=== PATIENT | male | born 1930 | race Caucasian/White ===

== ENCOUNTER → 2017-09-08 | Outpatient (CLI) | payer MEDICARE, OTHER ==
[~2017-09-08] MED LIST: AMIO100T4 PO; AMIO200T51 PO; ASPI-1419 PO; ATENOLOL; AZIT-9 PO; BIMA5DRO OU; CALC625T57 PO; CAR6.25 PO; CLO75 PO; Coumadin; FINA5TAB67 PO; FURO20TA19 PO; GLIM1TAB25 PO; ISOS60TA PO; LEVO-85 PO; LIS10 PO; METH4TAB66 PO; MIRA25TA PO; MULT-820 PO; NITR4.1S2 TL; OXYB10TA16 PO; OXYB5TAB86 PO; OXYGEN INH; SIM10 PO; SIMV-49 PO; SOLI5TAB PO; TAMS0.4C25 PO; TAMS0.4C70 PO; TER2 PO; VIT-7 PO; WAR25 PO; WAR5 PO; WARF-1 PO; WARF2.5T62 PO; WARF5TAB23 PO; [UNRECOGNIZED DRUG - CODE] PO; [UNRECOGNIZED DRUG - OTHER]
[2017-09-08 08:53] LABS: PLATELET COUNT, AUTOMATED 109 K/uL (150-450)
[2017-09-08 09:36] LABS: INR 2.68
== END ==
LOC: LAB 08:13
PROVIDERS: ATTEND Internal Medicine
DX: N40.0 Benign prostatic hyperplasia without lower urinary tract symptoms (principal); I10 Essential (primary) hypertension; I25.10 Atherosclerotic heart disease of native coronary artery without angina pectoris; E11.9 Type 2 diabetes mellitus without complications; Z86.718 Personal history of other venous thrombosis and embolism; E78.5 Hyperlipidemia, unspecified
CPT/HCPCS: 36415; 81001; 82040; 82247; 82310; 82374; 82435; 82465; 82565; 82947; 83036; 83718; 84075; 84132; 84155; 84295; 84443; 84450; 84460; 84478; 84520; 84550; 85025; 85610

== ENCOUNTER 2017-09-09 18:29 | Emergency (ER) | payer MEDICARE, OTHER ==
--- NOTE | 2017-09-09 18:44 | ER Report ---
History and Physical Time Seen By MD: 18:38 Hx. of Stated Complaint: CP, SOB SINCE YESTERDYA. HPI/ROS CHIEF COMPLAINT: Chest pain and shortness of breath HISTORY OF PRESENT ILLNESS: This is an 86-year-old male. He has had chest pain and shortness of breath since yesterday. Chest pain is more substernal pressure. EMS arrived at his home after called by his granddaughter. His granddaughter called because he was having some confusion tonight as well. He usually wears 2 L of oxygen and was wearing this however oxygen saturations in the mid 70s. When switched to 5 L by nasal cannula by EMS, his oxygen improved up into the mid 90s and his confusion also improved. He is a poor historian and can give us General Information but not details. 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 He does take a daily aspirin low dose. He denies having any fevers or chills. He always has a mild cough which is unchanged. EMS reported that they had a slight change on their carbon monoxide detector in their sending the fire department to look at the patient's home for possible carbon monoxide exposure. REVIEW OF SYSTEMS: Constitutional: No fever or chills. Eyes: No vision changes. ENT: No sore throat. No congestion. Cardiovascular: As above. Respiratory: As above. Gastrointestinal: No abdominal pain. No nausea or vomiting. Genitourinary: No pain with urination. Musculoskeletal: No musculoskeletal pain. Skin: No rashes. Neurological: Feels overall weak. No headache. Mild dizziness. Allergies: Coded Allergies: adhesive tape (Verified Allergy, Mild, RASH, 09/01/15) metformin (Verified Allergy, Unknown, 05/25/17) EHR CONVERSION Home Meds Active Scripts Simvastatin (SIMVASTATIN) 20 Mg Tablet, 20 MG PO HS, #90 TAB Prov:EVER LANCE MD 08/30/17 Amiodarone Hcl (PACERONE) 200 Mg Tablet, 0.5 TAB PO QDAY, #90 TAB half tablet daily, x6 times per week. Prov:EVER LANCE MD 08/05/17 Reported Medications Bimatoprost (Bimatoprost) 0.03 % Drop.w.vianey, 1 DROP OU QDAY 06/30/17 Oxybutynin Chloride (OXYBUTYNIN CHLORIDE ER) 10 Mg Tab.er.24, 10 MG PO QDAY, TAB.SR 06/30/17 Tamsulosin Hcl (TAMSULOSIN HCL) 0.4 Mg Cap.er.24h, 0.4 MG PO, CAP 06/30/17 Solifenacin Succinate (VESICARE) 5 Mg Tablet, 5 MG PO 05/25/17 Glimepiride (GLIMEPIRIDE) 1 Mg Tablet, 1 MG PO QDAY 05/25/17 Calcium Polycarbophil (FIBERCON) 625 Mg Tablet, 625 MG PO 05/25/17 Finasteride (FINASTERIDE) 5 Mg Tablet, 5 MG PO QDAY 09/01/15 Warfarin Sodium (COUMADIN) 5 Mg Tablet, 5 MG PO ,,SA,CASAS 09/01/15 Warfarin Sodium (COUMADIN) 2.5 Mg Tablet, 2.5 MG PO M,W,FR 09/01/15 Oxygen (Oxygen) 2 L Inha, 2 L INH QHS, 0 Refills 07/14/11 Lisinopril (Prinivil) 10 Mg Tab, 2.5 MG PO QDAY, #20 0 Refills 07/14/11 Beta-Carotene(A) W-C & E/Min (Ocuvite Tablet) 1 Tab Tablet, 1 TAB PO DAILY, 0 Refills 07/14/11 Aspirin (Baby Aspirin) 81 Mg Tab.chew, 81 MG PO DAILY, 0 Refills ON HOLD NOW 07/14/11 Past Medical/Surgical History CABG, stents, DVT, chronic kidney disease, hypertension, bph Reviewed Nurses Notes: Yes Hx Smoking: Yes Smoking Status: Former Smoker Exposure to Second Hand Smoke?: No Hx Substance Use Disorder: No Hx Alcohol Use: Yes (every evening) Constitutional Vital Sign - Last 24 Hours 09/09/17 09/09/17 09/09/17 09/09/17 18:32 18:33 18:33 18:44 Temp 97.5 Pulse 93 94 Resp 18 B/P (MAP) 143/92 (109) 143/92 Pulse Ox 94 90 O2 Delivery Nasal Cannula O2 Flow Rate 4.0 09/09/17 09/09/17 09/09/17 09/09/17 18:45 18:59 19:00 19:14 Pulse 92 91 B/P (MAP) 141/86 (104) 134/83 (100) Pulse Ox 89 90 09/09/17 09/09/17 09/09/17 09/09/17 19:15 19:29 19:30 19:44 Pulse 90 91 B/P (MAP) 132/81 (98) 130/75 (93) Pulse Ox 88 89 09/09/17 09/09/17 09/09/17 09/09/17 19:45 19:59 20:00 20:14 Pulse 94 94 B/P (MAP) 135/79 (97) 130/79 (96) Pulse Ox 92 91 09/09/17 09/09/17 09/09/17 09/09/17 20:15 20:20 20:30 20:35 Pulse 92 92 B/P (MAP) 140/88 (105) 140/84 (102) Pulse Ox 91 92 09/09/17 09/09/17 09/09/17 09/09/17 20:45 20:50 20:55 21:00 Pulse 88 86 B/P (MAP) 136/78 (97) 130/85 (100) Pulse Ox 89 90 Physical Exam General Appearance: The patient is alert. No acute distress. Eyes: Pupils are equal, round. Reactive to light. No pallor, injection or icterus. Extraocular movements are intact. ENT: Mucous membranes are moist. Normal oral mucosa. Posterior oropharynx is normal. Neck: Supple and non tender. No lymphadenopathy. Respiratory: Breathing easily and unlabored. Lungs are clear to auscultation. Cardiovascular: Regular rate and rhythm. No murmurs, gallops or rubs. Normal capillary refill. No edema. Gastrointestinal: Abdomen is soft and non tender. Nondistended. Normal active bowel sounds. Neurological: Alert and oriented to person and place, not to time. No focal neurologic deficits in the extremities. Skin: Warm and dry. No rashes. Musculoskeletal: Extremities are nontender. Full range of motion. DIFFERENTIAL DIAGNOSIS: After history and physical exam, differential diagnosis was considered for chest pain and shortness of breath including but not limited to myocardial ischemia, pericarditis pulmonary embolus, chest wall pain, pleural inflammation and pulmonary infectious causes. Medical Decision Making Data Points Result Diagram: 09/09/17182909/09/17 183 Laboratory Hematology Test 09/09/17 00:00 09/09/17 18:30 09/09/17 18:49 Carboxyhemoglobin 2.3 % (< 5.0) Red Blood Count 4.59 M/uL (4.00-5.60) Mean Corpuscular Volume 95.1 fL (80.0-96.0) Mean Corpuscular Hemoglobin 31.7 pg (26.0-33.0) Mean Corpuscular Hemoglobin Concent 33.3 g/dL (32.0-36.0) Red Cell Distribution Width 15.3 % (11.5-14.5) Mean Platelet Volume 8.7 fL (7.2-11.1) Neutrophils (%) (Auto) 59.1 % (39.4-72.5) Lymphocytes (%) (Auto) 32.0 % (17.6-49.6) Monocytes (%) (Auto) 8.8 % (4.1-12.4) Eosinophils (%) (Auto) 0.0 % (0.4-6.7) Basophils (%) (Auto) 0.1 % (0.3-1.4) Nucleated RBC Relative Count (auto) 0.0 /100WBC Neutrophils # (Auto) 10.3 K/uL (2.0-7.4) Lymphocytes # (Auto) 5.6 K/uL (1.3-3.6) Monocytes # (Auto) 1.5 K/uL (0.3-1.0) Eosinophils # (Auto) 0.0 K/uL (0.0-0.5) Basophils # (Auto) 0.0 K/uL (0.0-0.1) Nucleated RBC Absolute Count (auto) 0.00 K/uL Prothrombin Time 29.0 seconds (12.0-14.4) Prothromb Time International Ratio 2.63 Activated Partial Thromboplast Time 53 seconds (23-35) D-Dimer Quantitative (PE/DVT) 0.42 ug/ml (0-0.50) Sodium Level 136 mmol/L (137-145) Potassium Level 4.9 mmol/L (3.5-5.0) Chloride Level 101 mmol/L (98-107) Carbon Dioxide Level 26 mmol/L (22-30) Blood Urea Nitrogen 37 mg/dl (9-21) Creatinine 1.60 mg/dl (0.66-1.25) Glomerular Filtration Rate Calc 41.0 Random Glucose 148 mg/dl (75-110) Calcium Level 8.9 mg/dl (8.4-10.2) Total Bilirubin 0.9 mg/dl (0.2-1.3) Aspartate Amino Transf (AST/SGOT) 270 U/L (0-35) Alanine Aminotransferase (ALT/SGPT) 86 U/L (0-56) Alkaline Phosphatase 45 U/L (0-126) Troponin I 88.000 ng/ml B-Type Natriuretic Peptide 1540 pg/ml (0-100) Total Protein 7.0 gm/dl (6.3-8.2) Albumin 3.8 g/dl (3.5-5.0) Influenza Virus Type A (PCR) Negative (NEGATIVE) Influenza Virus Type B (PCR) Negative (NEGATIVE) Chemistry Test 09/09/17 00:00 09/09/17 18:30 09/09/17 18:49 Carboxyhemoglobin 2.3 % (< 5.0) White Blood Count 17.5 k/uL (4.5-11.0) Red Blood Count 4.59 M/uL (4.00-5.60) Hemoglobin 14.6 g/dL (14.0-18.0) Hematocrit 43.7 % (42.0-52.0) Mean Corpuscular Volume 95.1 fL (80.0-96.0) Mean Corpuscular Hemoglobin 31.7 pg (26.0-33.0) Mean Corpuscular Hemoglobin Concent 33.3 g/dL (32.0-36.0) Red Cell Distribution Width 15.3 % (11.5-14.5) Platelet Count 93 K/uL (150-450) Mean Platelet Volume 8.7 fL (7.2-11.1) Neutrophils (%) (Auto) 59.1 % (39.4-72.5) Lymphocytes (%) (Auto) 32.0 % (17.6-49.6) Monocytes (%) (Auto) 8.8 % (4.1-12.4) Eosinophils (%) (Auto) 0.0 % (0.4-6.7) Basophils (%) (Auto) 0.1 % (0.3-1.4) Nucleated RBC Relative Count (auto) 0.0 /100WBC Neutrophils # (Auto) 10.3 K/uL (2.0-7.4) Lymphocytes # (Auto) 5.6 K/uL (1.3-3.6) Monocytes # (Auto) 1.5 K/uL (0.3-1.0) Eosinophils # (Auto) 0.0 K/uL (0.0-0.5) Basophils # (Auto) 0.0 K/uL (0.0-0.1) Nucleated RBC Absolute Count (auto) 0.00 K/uL Prothrombin Time 29.0 seconds (12.0-14.4) Prothromb Time International Ratio 2.63 Activated Partial Thromboplast Time 53 seconds (23-35) D-Dimer Quantitative (PE/DVT) 0.42 ug/ml (0-0.50) Glomerular Filtration Rate Calc 41.0 Calcium Level 8.9 mg/dl (8.4-10.2) Total Bilirubin 0.9 mg/dl (0.2-1.3) Aspartate Amino Transf (AST/SGOT) 270 U/L (0-35) Alanine Aminotransferase (ALT/SGPT) 86 U/L (0-56) Alkaline Phosphatase 45 U/L (0-126) Troponin I 88.000 ng/ml B-Type Natriuretic Peptide 1540 pg/ml (0-100) Total Protein 7.0 gm/dl (6.3-8.2) Albumin 3.8 g/dl (3.5-5.0) Influenza Virus Type A (PCR) Negative (NEGATIVE) Influenza Virus Type B (PCR) Negative (NEGATIVE) Coagulation Test 09/09/17 18:30 Prothrombin Time 29.0 seconds Prothromb Time International Ratio 2.63 Activated Partial Thromboplast Time 53 seconds D-Dimer Quantitative (PE/DVT) 0.42 ug/ml EKG/Imaging EKG Interpretation 12 lead EKG: Rhythm: Sinus rhythm, premature atrial complexes, rate 95 [place]: Left axis QRS: Right bundle branch block. Q waves in the inferior leads ST segments: ST depression in leads V3 through V5. Biphasic T waves in the inferior leads. Imaging CHEST SINGLE AP HISTORY: Chest pain. Shortness of breath. COMPARISON: 02/03/2017. FINDINGS: A single portable AP view of the chest is obtained. Lines/tubes: None. Lungs/pleura: Increased prominence of interstitial markings and pulmonary vasculature compared with 02/03/2017. Possible small pleural effusions. No pneumothorax. Heart: Stable heart size. Mediastinum: Stable mediastinal contours. Bony structures/body wall: No acute osseous abnormality. IMPRESSION: Increased prominence of pulmonary interstitial markings and vasculature compared with 02/03/2017 suspicious for pulmonary edema or atypical infection. Possible small pleural effusions. Report Dictated By: Naun Courtney MD at 09/09/2017 7:09 PM ED Course/Re-evaluation Clinical Indication for ER IV: Hydration, IV Access ED Course After the initial evaluation, labs were obtained. Patient given aspirin 81mg x3 oral dose. EKG as noted above. Labs show elevated white blood cell count with shift, but no signs of infiltrate on chest x-ray. Troponin came back with critical elevation of 88.000. I discussed this with the patient and his granddaughter. They would like us to call [facility] for further evaluation. He has had work done in the remote past at [facility], but has not seen anyone for quite some time. Discussed with cardiology and the hospitalist and will transport to [facility]. Accepting physician is Dr. Moreno, hospitalist. Gave Plavix 300mg oral dose. He is therapeutic INR so no heparin at this time. Still with some substernal chest pressure. Shortness of breath has improved with his oxygen treatment. Decision to Disposition Date: Sep 09, 2017 Decision to Disposition Time: 20:05 Depart Departure Latest Vital Signs Vital Signs Date Time Temp Pulse Resp B/P (MAP) Pulse Ox O2 Delivery O2 Flow Rate FiO2 09/09/17 21:00 130/85 (100) 09/09/17 20:55 86 90 09/09/17 18:33 4.0 09/09/17 18:33 97.5 18 Nasal Cannula Impression: Primary Impression: NSTEMI (non-ST elevated myocardial infarction) Condition: Improved Disposition: HOME OR SELF-CARE Referrals: EVER LANCE MD (PCP) BISHNU LOPES MD Sep 09, 2017 18:44
[2017-09-09 18:54] LABS: PLATELET COUNT, AUTOMATED 93 K/uL (150-450)
--- NOTE | 2017-09-09 19:09 | EKG ---
FACILITY: [facility] [place] PATIENT NAME: TIA LICONA : [id number] MR: [id number] V: [id number] EXAM DATE: ORDERING PHYSICIAN: BISHNU LPOES TECHNOLOGIST: ROJAS Bonilla Reason : CHEST PAIN Blood Pressure : / mmHG Vent. Rate : 095 BPM Atrial Rate : 095 BPM P-R Int : 204 ms QRS Dur : 140 ms QT Int : 390 ms P-R-T Axes : 081 109 033 degrees QTc Int : 490 ms Sinus rhythm with premature atrial complexes Right bundle branch block Inferior infarct , age undetermined Abnormal ECG No previous ECGs available Confirmed by JESSICA TY ([id number]) on 09/09/2017 11:24:47 PM Referred By: Confirmed By:JESSICA TY
--- NOTE | 2017-09-09 19:16 | RADIOLOGY IMAGING REPORT ---
FACILITY: [facility] PATIENT NAME: Keegan Baumann : 1930 MR: [id number] V: [id number] EXAM DATE: ORDERING PHYSICIAN: BISHNU LOPES TECHNOLOGIST: Location: [facility] Patient: Keegan Baumann : 1930 Visit/Account:[id number] Date of Sevice: 09/09/2017 CHEST SINGLE AP HISTORY: Chest pain. Shortness of breath. COMPARISON: 02/03/2017. FINDINGS: A single portable AP view of the chest is obtained. Lines/tubes: None. Lungs/pleura: Increased prominence of interstitial markings and pulmonary vasculature compared with 02/03/2017. Possible small pleural effusions. No pneumothorax. Heart: Stable heart size. Mediastinum: Stable mediastinal contours. Bony structures/body wall: No acute osseous abnormality. IMPRESSION: Increased prominence of pulmonary interstitial markings and vasculature compared with 02/03/2017 suspi cious for pulmonary edema or atypical infection. Possible small pleural effusions. Report Dictated By: Naun Courtney MD at 09/09/2017 7:09 PM Report E-Signed By: Naun Courtney MD at 09/09/2017 7:12 PM WSN:[id number]
[2017-09-09] MEDS ORDERED: ASPIRIN 81 MG CHEW PO ONE (19:55)
[2017-09-09] MEDS ORDERED: CLOPIDOGREL BISULFATE 75MG TAB PO ONE (20:05)
[2017-09-09 20:06] LABS: INR 2.63
[2017-09-09 21:00] VITALS: BP 130/85
== END 2017-09-09 21:11 | disposition short-term general hospital (02) ==
LOC: ER 18:44
DX: I21.4 Non-ST elevation (NSTEMI) myocardial infarction (principal)
CPT/HCPCS: 71045; 82375; 83880; 84484; 85025; 85379; 85610; 85730; 87502; 93005; 99285; A9270; 82040; 82247; 82310; 82374; 82435; 82565; 82947; 84075; 84132; 84155; 84295; 84450; 84460; 84520

== ENCOUNTER → 2017-09-09 | Outpatient (CLI) | payer MEDICARE, OTHER | LOC: AMB 17:55 | PROVIDERS: ATTEND Nurse Practitioner | DX: R06.02 Shortness of breath (principal); R09.02 Hypoxemia; R53.1 Weakness | CPT/HCPCS: A0425; A0427 ==

== ENCOUNTER → 2017-09-09 | Outpatient (CLI) | payer MEDICARE, OTHER | LOC: AMB 20:59 | PROVIDERS: ATTEND Nurse Practitioner | DX: I21.4 Non-ST elevation (NSTEMI) myocardial infarction (principal) | CPT/HCPCS: A0425; A0426; A0888 ==